=== PATIENT | male | born 1950 | race Caucasian/White ===

== ENCOUNTER 2017-12-20 12:58 | Emergency (ER) | payer OTHER, MEDICAID ==
[~2017-12-20] VITALS: Ht 172.7 cm; Wt 92.5 kg
[~2017-12-20 12:58] MED LIST: ASA81 PO; ASPI-1155 PO; CLOP75TA2 PO; DOCU-144 PO; HYDR-1189 PO; LEVO100T9 PO; LEVO75TA7 PO; LIDOCAINE PATCH; LIDP TP; LISI10TA5 PO; LOSA100T3 PO; SIMV20TA2 PO; SIMV20TA6 PO
[2017-12-20 13:13] VITALS: BP_SYST 157
[2017-12-20 14:12] LABS: CALCIUM 9.6 mg/dL (8.4-11.0); CREATININE 0.79 mg/dL (0.55-1.30); POTASSIUM 4.5 mmol/L (3.5-5.1)
[2017-12-20] MEDS ORDERED: ASPIRIN 325 MG TABLET PO ONE (14:15)
[2017-12-20] MEDS ORDERED: NITROGLYCERIN 0.4 MG TAB.SUBL SL ONE (14:15)
[2017-12-20 14:17] LABS: ALBUMIN 4.5 g/dL (3.4-4.8); TOTAL BILIRUBIN 0.5 mg/dL (0.0-1.0)
[2017-12-20 14:22] LABS: BASOPHILS # (AUTO) 0.1 K/uL (0.0-0.2); EOSINOPHILS # (AUTO) 0.1 K/uL (0.0-0.4); EOSINOPHILS % (AUTO) 1.7 % (0.0-4.0); HEMATOCRIT 40.7 % (36-54); HEMOGLOBIN 13.4 g/dL (14.0-18.0); LYMPHOCYTES # (AUTO) 1.3 K/uL (1.0-5.5); LYMPHOCYTES % (AUTO) 23.6 % (20.5-51.5); MEAN CORPUSCULAR HEMOGLOBIN 29 pg (27-31); MEAN CORPUSCULAR HGB CONC 33 % (32-36); MEAN CORPUSCULAR VOLUME 87 fL (79.0-98.0); MONOCYTES # (AUTO) 0.6 K/uL (0.0-1.0); MONOCYTES % (AUTO) 10.4 % (1.7-9.3); NEUTROPHILS # (AUTO) 3.3 K/uL (1.8-7.7); NEUTROPHILS % (AUTO) 63.3 % (40.0-70.0); PLATELET COUNT (AUTO) 389 K/uL (130-430); RED BLOOD CELL COUNT(AUTO) 4.69 MIL/uL (4.2-6.2); RED CELL DISTRIBUTION WIDTH 14.9 % (9.0-15.0); WHITE BLOOD COUNT (AUTO) 5.4 K/uL (4.8-10.8)
[2017-12-20 14:32] LABS: INR 1.1 (0.80-1.20); PROTHROMBIN TIME 11.6 SECS (9.5-12.5)
[2017-12-20 18:55] VITALS: BP_SYST 144
== END 2017-12-20 18:54 | disposition home or self-care (01) ==
LOC: SED 12:58
DX: R07.89 Other chest pain (principal); I10 Essential (primary) hypertension; Z86.73 Personal history of transient ischemic attack (TIA), and cerebral infarction without residual deficits; Z95.0 Presence of cardiac pacemaker
CPT/HCPCS: 36415; 71045; 71250-TC; 80053; 82550-TC; 83880; 84484; 85025; 85379; 85610-TC; 85730-TC; 93005; 99285

== ENCOUNTER 2021-03-06 21:10 | Emergency (ER) | payer OTHER, MEDICAID, SELFPAY ==
[~2021-03-06] VITALS: Ht 172.7 cm; Wt 95.3 kg
[~2021-03-06 21:10] MED LIST changes: -HYDR-1189 PO; +HYDR-3919 PO; +LISI10TA29 PO; -LISI10TA5 PO; +SIMV-43 PO; -SIMV20TA6 PO
[2021-03-06 21:15] VITALS: BP_SYST 130
[2021-03-06 22:39] LABS: MEAN CORPUSCULAR HEMOGLOBIN 29 pg (27-31)
[2021-03-06 22:50] LABS: HEMATOCRIT 34.2 % (36-54); HEMOGLOBIN 11.4 g/dL (14.0-18.0); MEAN CORPUSCULAR HGB CONC 34 % (32-36); MEAN CORPUSCULAR VOLUME 87 fL (79.0-98.0); PLATELET COUNT (AUTO) 310 K/uL (130-430); RED BLOOD CELL COUNT(AUTO) 3.95 MIL/uL (4.2-6.2); RED CELL DISTRIBUTION WIDTH 16.7 % (9.0-15.0); WHITE BLOOD COUNT (AUTO) 7.6 K/uL (4.8-10.8)
[2021-03-06 23:06] LABS: INR 1.1 (0.80-1.20); PROTHROMBIN TIME 11.9 SECS (9.5-12.5)
[2021-03-06 23:08] LABS: ANION GAP 9 (5-15); CALCIUM 8.7 mg/dL (8.4-11.0); CHLORIDE 102 mmol/L (98-107); CREATININE 0.99 mg/dL (0.55-1.30); GLUCOSE 111 mg/dL (70-99); POTASSIUM 4.3 mmol/L (3.5-5.1); SODIUM SERUM 134 mmol/L (136-145); UREA NITROGEN, BLOOD 30 mg/dL (8-21)
[2021-03-06 23:13] LABS: ALANINE AMINOTRANSFERASE 23 U/L (12-78); ASPARTATE AMINOTRANSFERASE 19 U/L (10-37); TOTAL BILIRUBIN 0.3 mg/dL (0.0-1.0)
[2021-03-06 23:42] LABS: BAND % (MANUAL) 6 % (0-6); LYMPHOCYTES % (MANUAL) 18 % (20-46); MONOCYTES % (MANUAL) 20 % (0-11)
[2021-03-06 23:43] LABS: BASOPHILS % (MANUAL) 0 % (0-2); EOSINOPHILS % (MANUAL) 5 % (0-7)
--- NOTE | 2021-03-07 00:45 | NUR ---
ER examining patient in the ambulance.
--- NOTE | 2021-03-07 01:03 | NUR ---
Placed in room 8 . Placed on personnel monitor, blood pressure machine and pulse oximeter. To gown for exam. Side rails up. Report given to Ishmael CAMERON/Catherine CAMERON.
--- NOTE | 2021-03-07 01:28 | NUR ---
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 Pain spontaneously resolved however was concerned due to his prior history
--- NOTE | 2021-03-07 01:47 | NUR ---
Dr. Diego bedside for pt eval
--- NOTE | 2021-03-07 01:50 | NUR ---
Dr. Diego bedside finished exam, well tolerated
--- NOTE | 2021-03-07 02:50 | NUR ---
VSS, pt verbalized understanding of waiting for BLS transport back home to [place] alf
--- NOTE | 2021-03-07 03:55 | NUR ---
Pt asleep in comfort on ER [facility] rails up
--- NOTE | 2021-03-07 04:23 | NUR ---
Awaiting BLS transport back to [facility], Resting in comfort on gurpalestine
--- NOTE | 2021-03-07 05:43 | NUR ---
Pt resting in comfort on gurney rails up
--- NOTE | 2021-03-07 06:37 | NUR ---
ED Staff will attempt to reach [facility] for a possible ride back home ([place] [facility] )
--- NOTE | 2021-03-07 07:13 | NUR ---
Report received from Ishmael CAMERON to assume care of patient
--- NOTE | 2021-03-07 07:18 | NUR ---
Call placed to son for picking supervisor of patient. No answer; voicemail left. Will attempt another call.
--- NOTE | 2021-03-07 08:07 | NUR ---
Contacted [employer] regarding transport to [place] pt. transport team is not in yet will call back at [phone]
--- NOTE | 2021-03-07 08:41 | NUR ---
Second and third calls placed to family for possible pick up truck driver of patient; unsuccessful. Call placed to [facility] to assist with discharge. Awaiting call back.
--- NOTE | 2021-03-07 08:59 | NUR ---
SPOKE WITH RETAIL FIELD SUPERVISOR AT [facility], STATES HE WILL BE PICKED UP BY 10
[2021-03-07 19:19] VITALS: BP_SYST 130
== END 2021-03-07 19:19 | disposition home or self-care (01) ==
LOC: SED 21:10
DX: K64.4 Residual hemorrhoidal skin tags (principal); Z79.899 Other long term (current) drug therapy
CPT/HCPCS: 36415; 71045; 80053; 85007; 85027; 85610-TC; 85730-TC; 86886; 86900; 86901; 93005; 99285